=== PATIENT | male | born 1980 | race Caucasian/White ===

== ENCOUNTER 2022-09-24 12:11 | Emergency (ER) | payer OTHER | END 2022-09-24 14:50 | disposition home or self-care (01) | LOC: JP.ED 12:11 | DX: S06.0XAA Concussion with loss of consciousness status unknown, initial encounter (principal); Y04.0XXA Assault by unarmed brawl or fight, initial encounter; Y92.149 Unspecified place in prison as the place of occurrence of the external cause | CPT/HCPCS: 70450; 70450-26; 99283; 99284 ==